=== PATIENT | female | born 1955 | race African-American/Black ===

== ENCOUNTER → 2019-03-26 | Outpatient (CLI) | payer MEDICARE, MEDICAID ==
[~2019-03-26] MED LIST: ACET1TAB14 PO; ALBU2.5V13 IH; ALBU90AE IH; AMLO2.5T45 PO; BENA40TA9 PO; BUDE6HFA IH; CYCL10TA7 PO; FLUT16SP15 NS; FLUT1AER IH; GABA-531 PO; HYDR12.529 PO; LOVA10TA54; NAPR220T66 PO; OMEP20CA5 PO; ONDA4TAB5 PO; PANT40TA4 PO; RANI-633 PO; SERT-112 PO; SYN175 PO; proair hfa
== END | disposition home or self-care (01) ==
LOC: RAD 10:20
PROVIDERS: ATTEND Specialist
DX: J44.9 Chronic obstructive pulmonary disease, unspecified (principal); R94.31 Abnormal electrocardiogram [ECG] [EKG]; I10 Essential (primary) hypertension
CPT/HCPCS: 71045; 93005

== ENCOUNTER 2019-04-05 07:04 | Inpatient (IN) | payer MEDICARE, MEDICAID ==
[~2019-04-05] VITALS: Ht 165.1 cm; Wt 95.3 kg
[~2019-04-05 07:04] MED LIST changes: -ALBU2.5V13 IH; -ALBU90AE IH; -GABA-531 PO; -LOVA10TA54; -NAPR220T66 PO; -PANT40TA4 PO; -RANI-633 PO; -SERT-112 PO; +TRANEXAMIC ACID 1,000 MG in SODIUM CHLORIDE 0.9% 100 ML IV NR; +TRANEXAMIC ACID 1,000 MG/10 ML IV STA; -proair hfa
[2019-04-05] MEDS ORDERED: BUPIVACAINE/EPINEPH/PF 0.25%/0.0005 10ML ONE (08:05)
[2019-04-05] MEDS ORDERED: METHYLENE BLUE 50 MG/10 ML AMP IV ONE (08:05)
[2019-04-05] MEDS ORDERED: MORPHINE SULFATE/PF 1MG/ML 10ML AMP ONE (08:06)
[2019-04-05] MEDS ORDERED: EPINEPHRINE 1:1000 1 MG/ML AMP ONE (08:06)
[2019-04-05] MEDS ORDERED: GENTAMICIN SULF 40MG/ML 2ML VIAL ONE (08:06)
[2019-04-05] MEDS ORDERED: BACITRACIN 50,000 UNITS/VIAL ONE ×2 (08:07→08:10)
[2019-04-05] MEDS ORDERED: NORMAL SALINE 0.9% 10 ML SYR ONE (08:07)
[2019-04-05] MEDS ORDERED: VANCOMYCIN HCL 500 MG/VIAL ONE (08:07)
[2019-04-05] MEDS: LACTATED RINGERS 1,000 ML IV SCH ×2 (08:35→14:28)
[2019-04-05 08:38] LABS: CLARITY URINE CLEAR (CLEAR); COLOR URINE YELLOW (YELLOW); KETONES URINE NEGATIVE (NEGATIVE); LEUKOCYTE ESTERASE URINE NEGATIVE (NEGATIVE); NITRITE URINE NEGATIVE (NEGATIVE); OCCULT BLOOD URINE NEGATIVE (NEGATIVE); PROTEIN URINE NEGATIVE (NEGATIVE); SPECIFIC GRAVITY URINE 1.015 (1.005-1.030); UROBILINOGEN URINE 0.2 E.U./dL (0.2-1.0)
[2019-04-05 08:44] LABS: INR 1.1; PARTIAL THROMBOPLASTIN TIME 30.1 sec (23.4-31.0); PROTHROMBIN TIME 10.9 sec (9.6-11.0)
[2019-04-05] MEDS ORDERED: RANI-633 PO (08:44)
[2019-04-05] MEDS ORDERED: ALBU2.5V13 IH (08:49)
[2019-04-05] MEDS ORDERED: ALBU90AE IH (08:49)
[2019-04-05] MEDS ORDERED: NAPR220T66 PO (08:54)
[2019-04-05] MEDS ORDERED: PANT40TA4 PO (08:55)
[2019-04-05] MEDS ORDERED: FENTANYL CITRATE/PF 50MCG/ML 2ML VIAL ONE (10:38)
[2019-04-05] MEDS ORDERED: NEOSTIGMINE METHYLSULFATE 1MG/ML 10 ML VIAL ONE (10:38)
[2019-04-05] MEDS ORDERED: ROCURONIUM BROMIDE 10MG/ML VIAL 5ML IV ONE (10:38)
[2019-04-05] MEDS ORDERED: MIDAZOLAM HCL 2 MG/2 ML VIAL ONE (10:39)
[2019-04-05] MEDS ORDERED: PROPOFOL 200MG/20ML VIAL IV ONE (10:39)
[2019-04-05] MEDS ORDERED: GLYCOPYRROLATE 0.2 MG/ML 2ML VIAL ONE (10:39)
[2019-04-05] MEDS ORDERED: BUPIVACAINE HCL/DEXTROSE/PF 0.75% 2ML AMP INJ ONE (10:48)
[2019-04-05] MEDS ORDERED: MEPERIDINE HCL/PF 25MG/ML CPJ IV PRN (11:15)
[2019-04-05] MEDS ORDERED: HYDROMORPHONE HCL/PF 2MG/ML CPJ IV PRN (11:15)
[2019-04-05] MEDS ORDERED: ONDANSETRON HCL 4MG/2ML INJ IV PRN (11:15)
[2019-04-05] MEDS ORDERED: LABETALOL 5MG/ML SYR 20 MG/4 ML SYRINGE IV PRN (11:15)
[2019-04-05] MEDS ORDERED: DEXAMETHASONE 4MG/ML 1ML VIAL ONE (12:09)
[2019-04-05] MEDS ORDERED: HYDROCODONE/ACETAMINOPHEN 10/325MG TABLET PO PRN ×2 (14:30)
[2019-04-05] MEDS ORDERED: ACETAMINOPHEN 325MG TABLET PO PRN (14:30)
[2019-04-05] MEDS ORDERED: ZOLPIDEM TARTRATE 5MG TABLET PO PRN (14:30)
[2019-04-05] MEDS ORDERED: MAGNESIUM HYDROXIDE 400MG/5ML 30ML UDC PO PRN (14:30)
[2019-04-05] MEDS ORDERED: NALOXONE INJ IV PRN (14:45)
[2019-04-05] MEDS ORDERED: ONDANSETRON INJ IV PRN (14:45)
[2019-04-05] MEDS ORDERED: HYDROMORPHONE PCA 10MG/50ML IV PRN (14:45)
[2019-04-05 16:31] VITALS: BP 107/57
[2019-04-05] MEDS ORDERED: DOCUSATE SODIUM 100MG CAPSULE PO SCH (17:00)
[2019-04-05] MEDS ORDERED: NALOXONE HCL 0.4 MG/ML 1ML VIAL IV NR (19:00)
[2019-04-05 19:09] VITALS: BP 107/57
[2019-04-05 19:12] LABS: BG BASE EXCESS -3.9 mmol/L (-2.0-2.0); BG CARBOXYHEMOGLOBIN 0.4 % (0.5-1.5); BG DEOXYHEMOGLOBIN 1.1 % (0.0-5.0); BG FRACTION INSPIRED OXYGEN 100; BG HCO3 ACT 21.6 mmol/L (22.0-26.0); BG METHEMOGLOBIN 0.5 % (0.0-1.5); BG OXYGEN SATURATION 98.9 % (92.0-98.5); BG PCO2 40.9 mmHg (35.0-45.0); BG PH 7.341 (7.350-7.450); BG PO2 168.7 mmHg (75.0-100.0); BG SAMPLE SITE RIGHT RADIAL; BG TOTAL HEMOGLOBIN 13.9 g/dL (12.0-18.0); BG VENT MODE MASK - NRB
[2019-04-05 20:00] VITALS: BP 131/62
[2019-04-05] MEDS: CEFAZOLIN 2,000 MG in DEXT 5% WATER 100 ML IV SCH (21:58)
[2019-04-05 22:49] LABS: BG BASE EXCESS -4.3 mmol/L (-2.0-2.0); BG CARBOXYHEMOGLOBIN 0.1 % (0.5-1.5); BG DEOXYHEMOGLOBIN 2.1 % (0.0-5.0); BG FRACTION INSPIRED OXYGEN 44; BG HCO3 ACT 22.8 mmol/L (22.0-26.0); BG METHEMOGLOBIN 0.4 % (0.0-1.5); BG OXYGEN SATURATION 97.9 % (92.0-98.5); BG OXYHEMOGLOBIN 97.4 % (94.0-97.0); BG PCO2 49.6 mmHg (35.0-45.0); BG PO2 115.4 mmHg (75.0-100.0); BG SAMPLE SITE RIGHT RADIAL; BG TOTAL HEMOGLOBIN 13.4 g/dL (12.0-18.0); BG VENT MODE MASK - SIMPLE
[2019-04-06] VITALS: BP 128/75
[2019-04-06 04:00] VITALS: BP 123/74
[2019-04-06] MEDS: CEFAZOLIN 2,000 MG in DEXT 5% WATER 100 ML IV SCH (04:37)
[2019-04-06] MEDS: ONDANSETRON HCL 4MG/2ML INJ IV PRN (04:53)
[2019-04-06 06:48] LABS: BASOPHILS % 0.2 % (0.0-2.0); HEMATOCRIT. 35.1 % (36.0-48.0); HEMOGLOBIN. 11.8 g/dL (12.0-16.0); LYMPHOCYTES % 9.4 % (20.0-50.0); MEAN CORPUSCULAR HEMOGLOBIN 29.7 pg (28.0-32.0); MEAN PLATELET VOLUME 7.5 fl (7.4-10.4); MONOCYTES % 10.1 % (2.0-8.0); NEUTROPHILS % 80.3 % (40.0-76.0); PLATELET 302 x1000/uL (130-400); RED BLOOD CELL COUNT 3.99 mill/uL (4.2-5.4); RED CELL DISTRIBUTION WIDTH 12.8 % (11.6-14.6)
[2019-04-06 07:03] LABS: CHLORIDE 106 mEq/L (98-107)
[2019-04-06 08:00] VITALS: BP 136/72
[2019-04-06] MEDS ORDERED: IPRATROPIUM/ALBUTEROL 0.5-3(2.5)MG/3ML NEB HHN PRN (08:30)
[2019-04-06] MEDS: ENOXAPARIN 30MG/0.3ML SYR SUBCUT SCH ×2 (10:09→20:12)
[2019-04-06] MEDS: DOCUSATE SODIUM 100MG CAPSULE PO SCH ×2 (10:09→17:00)
[2019-04-06] MEDS: ACETAMINOPHEN WITH CODEINE 300/30MG TABLET PO PRN ×3 (11:22→20:12)
[2019-04-06 11:48] LABS: BG BASE EXCESS 1.1 mmol/L (-2.0-2.0); BG CARBOXYHEMOGLOBIN 0.1 % (0.5-1.5); BG DEOXYHEMOGLOBIN 3.1 % (0.0-5.0); BG FRACTION INSPIRED OXYGEN 28; BG HCO3 ACT 25.8 mmol/L (22.0-26.0); BG METHEMOGLOBIN 0.3 % (0.0-1.5); BG OXYGEN SATURATION 96.9 % (92.0-98.5); BG OXYHEMOGLOBIN 96.5 % (94.0-97.0); BG PCO2 41.4 mmHg (35.0-45.0); BG PH 7.412 (7.350-7.450); BG PO2 91.2 mmHg (75.0-100.0); BG SAMPLE SITE RIGHT BRACHIAL; BG TOTAL HEMOGLOBIN 13.3 g/dL (12.0-18.0); BG VENT MODE NASAL CANNULA
[2019-04-06 12:00] VITALS: BP 128/64
[2019-04-06 16:00] VITALS: BP 141/63
[2019-04-06 20:00] VITALS: BP 165/74
[2019-04-06] MEDS: IPRATROPIUM/ALBUTEROL 0.5-3(2.5)MG/3ML NEB HHN SCH (21:16)
[2019-04-07] VITALS: BP 150/72
[2019-04-07] MEDS: IPRATROPIUM/ALBUTEROL 0.5-3(2.5)MG/3ML NEB HHN SCH ×4 (00:51→12:00)
[2019-04-07] MEDS: ACETAMINOPHEN WITH CODEINE 300/30MG TABLET PO PRN ×2 (01:49→10:43)
[2019-04-07 04:00] VITALS: BP 168/81
[2019-04-07 06:58] LABS: BASOPHILS % 0.4 % (0.0-2.0); EOSINOPHILS % 0.1 % (0.0-5.0); HEMOGLOBIN. 11.1 g/dL (12.0-16.0); LYMPHOCYTES % 18.8 % (20.0-50.0); MEAN CORPUSCULAR HEMOGLOBIN 29.3 pg (28.0-32.0); MEAN CORPUSCULAR VOLUME 87.4 fL (81.0-99.0); MEAN PLATELET VOLUME 7.4 fl (7.4-10.4); MONOCYTES % 10.4 % (2.0-8.0); NEUTROPHILS % 70.3 % (40.0-76.0); PLATELET 269 x1000/uL (130-400); RED BLOOD CELL COUNT 3.77 mill/uL (4.2-5.4); RED CELL DISTRIBUTION WIDTH 12.9 % (11.6-14.6)
[2019-04-07 07:02] LABS: CHLORIDE 103 mEq/L (98-107)
[2019-04-07 08:00] VITALS: BP 159/73
[2019-04-07] MEDS: DOCUSATE SODIUM 100MG CAPSULE PO SCH (09:20)
[2019-04-07] MEDS: ENOXAPARIN 30MG/0.3ML SYR SUBCUT SCH (09:21)
[2019-04-07] MEDS: ONDANSETRON HCL 4MG/2ML INJ IV PRN (10:13)
[2019-04-07] MEDS ORDERED: ACETAMINOPHEN WITH CODEINE 300/60MG TABLET PO PRN (10:30)
[2019-04-07 12:00] VITALS: BP 141/80
[2019-04-07 12:49] VITALS: BP 142/70
== END 2019-04-07 14:00 | disposition home or self-care (01) | DRG 469 ==
LOC: OR 07:04 → 6EST 18:14 → 8WST 23:05
PROVIDERS: ADMIT Orthopaedic Surgery; ATTEND Orthopaedic Surgery
PROC: 0SRC0J9 Replacement of Right Knee Joint with Synthetic Substitute, Cemented, Open Approach (ICD-10-PCS; principal; 2019-04-05)
PROC: 5A09357 Assistance with Respiratory Ventilation, Less than 24 Consecutive Hours, Continuous Positive Airway Pressure (ICD-10-PCS; 2019-04-06)
PROC: 5A09357 Assistance with Respiratory Ventilation, Less than 24 Consecutive Hours, Continuous Positive Airway Pressure (ICD-10-PCS; 2019-04-07)
DX: M17.11 Unilateral primary osteoarthritis, right knee (principal); J96.02 Acute respiratory failure with hypercapnia; E03.9 Hypothyroidism, unspecified; E66.01 Morbid (severe) obesity due to excess calories; E78.5 Hyperlipidemia, unspecified; E87.6 Hypokalemia; G47.33 Obstructive sleep apnea (adult) (pediatric); G89.29 Other chronic pain; M21.061 Valgus deformity, not elsewhere classified, right knee; I10 Essential (primary) hypertension; J44.9 Chronic obstructive pulmonary disease, unspecified; J45.20 Mild intermittent asthma, uncomplicated; R73.9 Hyperglycemia, unspecified; M65.9 Synovitis and tenosynovitis, unspecified; Z60.2 Problems related to living alone; Z90.710 Acquired absence of both cervix and uterus; Z79.899 Other long term (current) drug therapy; Z68.34 Body mass index [BMI] 34.0-34.9, adult
CPT/HCPCS: 36415; 36600; 73560; 80048; 80051; 82375; 82805; 83036; 83735; 86803; 86850; 86900; 88305; 88311; 94640; 94660; 97110; 97116; 97162; 97166; 97530; C1713; C1776; J0171; J0690; J1100; J1170; J1580; J1650; J2250; J2274; J2310; J2405; J2704; J2710; J3010; J3370; J3490; J7040; J7050; J7060; J7620; L1830; Q9968

== ENCOUNTER 2021-03-18 20:40 | Emergency (ER) | payer MEDICARE, MEDICAID ==
[~2021-03-18] VITALS: Ht 165.1 cm; Wt 101.0 kg
[~2021-03-18 20:40] MED LIST changes: +ALBU2.5V13 IH; +NAPR220T66 PO; +OMEP20CA14 PO; -OMEP20CA5 PO; +PANT40TA51 PO; +RANI-645 PO; -TRANEXAMIC ACID 1,000 MG in SODIUM CHLORIDE 0.9% 100 ML IV NR; -TRANEXAMIC ACID 1,000 MG/10 ML IV STA
[2021-03-18] MEDS ORDERED: MORPHINE SULFATE 4 MG/ML CPJ (NOT FOR IM USE) IV ONE (22:45)
[2021-03-18] MEDS ORDERED: ONDANSETRON HCL 4MG/2ML INJ IV ONE (22:45)
[2021-03-18] MEDS ORDERED: KETOROLAC 15MG/ML VIAL IV ONE (22:45)
[2021-03-19] MEDS ORDERED: IBUP-2029 MT (00:32)
[2021-03-19] MEDS ORDERED: OXYC-662 MT (00:32)
[2021-03-19] MEDS ORDERED: ACET-2708 MT (00:32)
[2021-03-19 02:18] VITALS: BP 125/66
== END 2021-03-19 02:18 | disposition home or self-care (01) ==
LOC: ER 20:40
DX: M25.512 Pain in left shoulder (principal); R73.03 Prediabetes; I10 Essential (primary) hypertension; J44.9 Chronic obstructive pulmonary disease, unspecified; E03.9 Hypothyroidism, unspecified; J45.909 Unspecified asthma, uncomplicated; Z90.710 Acquired absence of both cervix and uterus; Z96.659 Presence of unspecified artificial knee joint; Z88.6 Allergy status to analgesic agent
CPT/HCPCS: 73030; 93005; 96374; 96375; 99284; J1885; J2270; J2405

== ENCOUNTER 2021-07-07 18:06 | Emergency (ER) | payer MEDICARE, MEDICAID ==
[~2021-07-07] VITALS: Ht 167.6 cm; Wt 101.0 kg
[~2021-07-07 18:06] MED LIST changes: +ACET-2708 MT; +IBUP-2029 MT; +OXYC-662 MT
[2021-07-08] MEDS ORDERED: IPRATROPIUM BROMIDE (0.02%) 0.5MG/2.5ML NEB HHN STA (00:15)
[2021-07-08] MEDS ORDERED: PREDNISONE 20MG TABLET PO STA (00:15)
[2021-07-08] MEDS ORDERED: ALBUTEROL (0.083%) 2.5MG/3ML NEB HHN STA (00:15)
[2021-07-08] MEDS ORDERED: MAGNESIUM 2 G PREMIX 50 ML IV ONE (00:15)
[2021-07-08] MEDS ORDERED: ALBU90AE INH (03:22)
[2021-07-08] MEDS ORDERED: P20 MT (03:22)
[2021-07-08 04:22] VITALS: BP 127/82
== END 2021-07-08 04:24 | disposition home or self-care (01) ==
LOC: ER 18:06
DX: J44.1 Chronic obstructive pulmonary disease with (acute) exacerbation (principal); I10 Essential (primary) hypertension; E03.9 Hypothyroidism, unspecified; M79.7 Fibromyalgia; Z90.710 Acquired absence of both cervix and uterus; Z96.659 Presence of unspecified artificial knee joint; Z88.6 Allergy status to analgesic agent
CPT/HCPCS: 71045; 93005; 94640; 99283; J7512

== ENCOUNTER 2024-12-12 14:41 | Emergency (ER) | payer MEDICARE, MEDICAID ==
[~2024-12-12] VITALS: Ht 167.6 cm; Wt 97.7 kg
[~2024-12-12 14:41] MED LIST changes: +ALBU90AE INH; -BENA40TA9 PO; +BENA40TA91 PO; +CYCL10TA21 PO; -CYCL10TA7 PO; +P20 MT
[2024-12-12 14:48] VITALS: O2SAT 99
[2024-12-12 15:33] VITALS: BP 136/68; PULSE 93; RESP 18; TEMP 37.9; O2SAT 99
[2024-12-12 16:07] LABS: DIFFERENTIAL COMMENT 1; HEMATOCRIT. 41.7 % (36.0-48.0); HEMOGLOBIN. 13.7 g/dL (12.0-16.0); MEAN CORPUSCULAR HEMOGLOBIN 29.3 pg (28.0-32.0); MEAN CORPUSCULAR HGB CONC 32.8 g/dL (31.0-37.0); MEAN CORPUSCULAR VOLUME 89.3 fL (81.0-99.0); MEAN PLATELET VOLUME 6.9 fl (7.4-10.4); PLATELET 328 x1000/uL (130-400); RED BLOOD CELL COUNT 4.67 mill/uL (4.2-5.4); RED CELL DISTRIBUTION WIDTH 13.9 % (11.6-14.6); WHITE BLOOD COUNT 8.3 x1000/uL (4.5-11.0)
[2024-12-12 16:17] LABS: CHLORIDE 110 mEq/L (98-107); POTASSIUM 4.6 mEq/L (3.5-5.1); SODIUM 143 mEq/L (136-145)
[2024-12-12 16:18] LABS: CARBON DIOXIDE 25 mEq/L (21-32)
[2024-12-12 16:23] LABS: CREATININE 0.8 mg/dL (0.6-1.0); GLUCOSE 165 mg/dL (70-105); UREA NITROGEN BLOOD 7 mg/dL (9-23)
[2024-12-12 16:24] LABS: TROPONIN I HIGH SENSITIVITY 28 ng/L (3.0-34)
[2024-12-12 16:25] LABS: ALANINE AMINOTRANSFERASE 39 IU/L (10-49); ALBUMIN 4.6 g/dL (3.2-4.8); ASPARTATE AMINOTRANSFERASE 35 IU/L (<34); BILIRUBIN TOTAL 0.3 mg/dL (0.1-1.0); PROTEIN TOTAL 8.1 g/dL (6.0-8.3)
[2024-12-12] MEDS: MAGNESIUM/ALUMINUM HYDROXIDE/SIMETHICONE 30ML UDC PO ONE (16:38)
[2024-12-12] MEDS: ONDANSETRON 4MG ODT PO ONE (16:38)
[2024-12-12 16:48] LABS: PLATELET ESTIMATE NORMAL
[2024-12-12] MEDS ORDERED: ONDA-239 PO (17:24)
[2024-12-12 18:04] LABS: CLARITY URINE CLEAR (CLEAR); COLOR URINE YELLOW (YELLOW); GLUCOSE URINE NEGATIVE (NEGATIVE); KETONES URINE NEGATIVE (NEGATIVE); LEUKOCYTE ESTERASE URINE 1+ (NEGATIVE); NITRITE URINE NEGATIVE (NEGATIVE); OCCULT BLOOD URINE 1+ (NEGATIVE); PH URINE 5.5 (4.5-8.0); PROTEIN URINE NEGATIVE (NEGATIVE); SPECIFIC GRAVITY URINE 1.021 (1.005-1.030); UROBILINOGEN URINE 0.2 E.U./dL (0.2-1.0)
[2024-12-12 18:20] LABS: BACTERIA URINE 1+; SQUAMOUS EPITHELIAL CELL URINE 1+ /lpf (RARE/1+)
[2024-12-12 19:35] LABS: INFLUENZA TYPE A Presumptive Negative (Pres. Neg.)
[2024-12-12 19:36] LABS: INFLUENZA TYPE B Presumptive Negative (Pres. Neg.)
== END 2024-12-12 17:58 | disposition home or self-care (01) ==
LOC: ER 14:41
DX: U07.1 COVID-19 (principal); A08.4 Viral intestinal infection, unspecified; E03.9 Hypothyroidism, unspecified; I10 Essential (primary) hypertension; J44.0 Chronic obstructive pulmonary disease with (acute) lower respiratory infection; M17.11 Unilateral primary osteoarthritis, right knee; Z90.710 Acquired absence of both cervix and uterus; Z96.659 Presence of unspecified artificial knee joint; Z79.51 Long term (current) use of inhaled steroids; Z79.890 Hormone replacement therapy; Z79.899 Other long term (current) drug therapy; Z88.6 Allergy status to analgesic agent; Z88.5 Allergy status to narcotic agent
CPT/HCPCS: 99285; 71045; 87426; 80053; 81003; 81025; 85025; 84484; 87804 ×2; 36415; 93005; Q0162